=== PATIENT | male | born 1990 | race Caucasian/White ===

== ENCOUNTER 2018-03-11 10:08 | Emergency (ER) | payer SELFPAY ==
[~2018-03-11] VITALS: Ht 182.9 cm; Wt 77.3 kg
[2018-03-11 10:14] VITALS: Ht 182.9 cm; Wt 77.3 kg
[2018-03-11] MEDS ORDERED: VOLTAREN75 MG PO (13:29)
[2018-03-11 14:20] VITALS: BP 130/70
== END 2018-03-11 14:20 | disposition home or self-care (01) ==
LOC: D.ER 10:08
DX: S52.511A Displaced fracture of right radial styloid process, initial encounter for closed fracture (principal); X58.XXXA Exposure to other specified factors, initial encounter; Y93.89 Activity, other specified; Y92.019 Unspecified place in single-family (private) house as the place of occurrence of the external cause; F17.200 Nicotine dependence, unspecified, uncomplicated